=== PATIENT | female | born 2000 | race Caucasian/White ===

== ENCOUNTER 2020-11-05 16:31 | Emergency (ER) | payer OTHER ==
[~2020-11-05] VITALS: Ht 152.4 cm; Wt 53.1 kg
[2020-11-05 16:40] VITALS: Ht 152.4 cm; Wt 53.1 kg
[2020-11-05] MEDS ORDERED: PREDNISONE50 MG PO (18:13)
[2020-11-05] MEDS ORDERED: ZYRTEC ALLERGY10 MG PO (18:13)
[2020-11-05 18:25] VITALS: BP 105/67
== END 2020-11-05 18:25 | disposition home or self-care (01) ==
LOC: ED 16:31
DX: R21 Rash and other nonspecific skin eruption (principal); Z88.8 Allergy status to other drugs, medicaments and biological substances
CPT/HCPCS: J1200; J2930